=== PATIENT | female | born 1945 | race Caucasian/White ===

== ENCOUNTER 2017-12-02 19:58 | Emergency (ER) | payer OTHER ==
[~2017-12-02] VITALS: Ht 167.6 cm; Wt 62.7 kg
[2017-12-02 20:23] LABS: APPEARANCE CLEAR ((CLEAR)); BILIRUBIN NEGATIVE; BLOOD NEGATIVE; COLOR YELLOW ((YELLOW)); GLUCOSE (STRIP) NEGATIVE; KETONES 5; LEUKOCYTES NEGATIVE; NITRITE NEGATIVE; PROTEIN (STRIP) NEGATIVE; UCUL ADDED? NO
[2017-12-02 21:56] LABS: HEMATOCRIT 37.7 % (36.0-46.0); HEMOGLOBIN 12.9 G/DL (11.9-15.5); MCH 28.7 PG (29.0-34.0); MCHC 34.2 G/DL (30.0-36.0); PLATELET COUNT 276 K/uL (156-360); RBC DIS.WIDTH-CV 18.1 % (11.8-14.6); RBC DIS.WIDTH-SD 54.9 % (39-53); RED BLOOD COUNT 4.49 M/uL (3.80-5.20); WHITE BLOOD COUNT 7.6 K/uL (4.1-10.2)
[2017-12-02 22:12] LABS: ALBUMIN 3.5 g/dL (3.2-4.8)
[2017-12-02 22:13] LABS: CHLORIDE 104 mEq/L (99-109); POTASSIUM 3.6 mEq/L (3.7-5.4); SODIUM 141 mEq/L (136-147)
[2017-12-02 22:15] LABS: GLUCOSE 117 mg/dL (70-99)
[2017-12-02 22:17] LABS: TOTAL BILIRUBIN 1.4 mg/dL (0.0-1.0)
[2017-12-02 22:18] LABS: ALKALINE PHOSPHATASE 90 IU/L (3-129)
[2017-12-02 22:19] LABS: CREATININE 0.7 mg/dL (0.6-1.3); GFR ESTIMATE (CALCULATED) > 59 mL/min/
[2017-12-02 22:20] LABS: AST (GOT) 9 IU/L (2-34); UREA NITROGEN (BUN) 12 mg/dL (9-23)
[2017-12-02 22:21] LABS: ALT (GPT) 3 IU/L (3-49)
[2017-12-02] MEDS ORDERED: MIRALAX255 GM PO (23:44)
[2017-12-03 00:10] VITALS: BP 157/84
== END 2017-12-03 00:11 | disposition home or self-care (01) ==
LOC: EME 19:58
PROVIDERS: Emergency Medicine
DX: K59.00 Constipation, unspecified (principal); R32 Unspecified urinary incontinence; R11.2 Nausea with vomiting, unspecified; G20 Parkinson's disease; Z87.440 Personal history of urinary (tract) infections
CPT/HCPCS: 74177; 80053; 81003; 85027; 99281; 99285; J7030